=== PATIENT | male | born 1970 | race Caucasian/White ===

== ENCOUNTER 2023-04-12 13:49 | Outpatient (REF) | payer OTHER, SELFPAY ==
--- NOTE | 2023-04-12 | EMG_ITS ---
Chief complaint: Gradual onset and progression of numbness in both feet and weakness. Sudden exacerbation last February now involving both hands and feet. History of lumbar surgery 2020 and alcohol drinking. Reason for referral: Evaluate for neuropathy Referred by: Dr. Julito Ribeiro Procedure done: Bilateral lower extremity, right upper extremity, NCS/EMG Precautions and/or limitations: Patient on Lovenox. The limb temperature was monitored continuously and remained between 32-36 degrees C during the performance of the NCS. Nerve Conduction Studies Anti Sensory Summary Table ?Stim Site NR Onset (ms) Norm Onset (ms) Peak (ms) Norm Peak (ms) O-P Amp (?V) Norm O-P Amp Site1 Site2 Delta-0 (ms) Dist (cm) Kris (m/s) Norm Kris (m/s) Right Median Anti Sensory (2nd Digit) Wrist ? 3.2 4.3 <3.6 3.7 >10 Wrist 2nd Digit 3.2 14.0 44 Right Radial Anti Sensory (Thumb) Forearm ? 2.7 3.2 <3.1 3.3 Forearm Thumb 2.7 0.0 Left Sural Anti Sensory (Lat Mall) Calf ? 2.2 2.7 <4.0 3.0 >5.0 Calf Lat Mall 2.2 14.0 64 Right Sural Anti Sensory (Lat Mall) Calf ? 2.6 3.1 <4.0 2.4 >5.0 Calf Lat Mall 2.6 14.0 54 Right Ulnar Anti Sensory (5th Digit) Wrist ? 2.6 2.9 <3.7 3.7 >15.0 Wrist 5th Digit 2.6 14.0 54 Motor Summary Table ?Stim Site NR Onset (ms) Norm Onset (ms) O-P Amp (mV) Norm O-P Amp iAmp (mV) Amp (1st) (%) Site1 Site2 Delta-0 (ms) Dist (cm) Kris (m/s) Norm Kris (m/s) Right Median Motor (Abd Poll Brev) Wrist ? 3.7 <3.9 9.2 >4.5 11.5 100.0 Elbow Wrist 4.6 22.5 49 >45 Elbow ? 8.3 7.3 9.2 79.3 Left Peroneal Motor (Ext Dig Brev) Ankle ? 4.8 <4.0 4.4 >2.5 5.3 100.0 Ankle Ext Dig Brev 4.8 0.0 B Fib ? 12.5 3.0 3.6 68.2 B Fib Ankle 7.7 32.0 42 >40 Poplt ? 13.6 2.7 3.2 61.4 Poplt B Fib 1.1 5.5 50 >40 Right Peroneal Motor (Ext Dig Brev) Ankle ? 4.5 <4.0 4.4 >2.5 5.4 100.0 Ankle Ext Dig Brev 4.5 0.0 B Fib ? 12.0 3.6 4.4 81.8 B Fib Ankle 7.5 34.0 45 >40 Poplt ? 13.1 3.4 4.2 77.3 Poplt B Fib 1.1 6.0 55 >40 Left Tibial Motor (Abd Newman Brev) Ankle ? 4.1 <5 9.4 >2.5 12.4 100.0 Ankle Abd Newman Brev 4.1 0.0 Knee ? 13.0 6.4 9.5 68.1 Knee Ankle 8.9 40.0 45 >40 Right Tibial Motor (Abd Newman Brev) Ankle ? 3.9 <5 5.1 >2.5 7.4 100.0 Ankle Abd Newman Brev 3.9 0.0 Knee ? 15.2 1.2 1.8 23.5 Knee Ankle 11.3 39.5 35 >40 Right Ulnar Motor (Abd Dig Minimi) Wrist ? 2.8 <3.0 2.4 >5 3.0 100.0 B Elbow Wrist 4.2 21.0 50 >45 B Elbow ? 7.0 1.7 2.0 70.8 A Elbow B Elbow 2.2 10.0 45 >45 A Elbow ? 9.2 1.6 1.9 66.7 EMG ?Side Muscle Nerve Root Ins Act Fibs Psw Amp Dur Poly Recrt Int Pat Comment Right AbdHallucis MedPlantar S1-2 Incr 1+ 1+ Incr Incr 0 Nml Complete Right AntTibialis Dp Br Peron L4-5 Nml Nml Nml Nml Nml 0 Nml Complete Right PostTibialis Tibial L5, S1 Nml Nml Nml Nml Nml 0 Nml Complete Right MedGastroc Tibial S1-2 Nml Nml Nml Nml Nml 0 Nml Complete Right VastusMed Femoral L2-4 Nml Nml Nml Nml Nml 0 Nml Complete Left AbdHallucis MedPlantar S1-2 Nml Nml Nml Nml Nml 0 Nml Complete Left AntTibialis Dp Br Peron L4-5 Nml Nml Nml Nml Nml 0 Nml Complete Left PostTibialis Tibial L5, S1 Nml Nml Nml Nml Nml 0 Nml Complete Left MedGastroc Tibial S1-2 Nml Nml Nml Nml Nml 0 Nml Complete Left VastusMed Femoral L2-4 Nml Nml Nml Nml Nml 0 Nml Complete Right 1stDorInt Ulnar C8-T1 Nml Nml Nml Nml Nml 0 Nml Complete Right FlexCarRad Median C6-7 Nml Nml Nml Nml Nml 0 Nml Complete Right Biceps Musculocut C5-6 Nml Nml Nml Nml Nml 0 Nml Complete Right Triceps Radial C6-7-8 Nml Nml Nml Nml Nml 0 Nml Complete Right Deltoid Axillary C5-6 Nml Nml Nml Nml Nml 0 Nml Complete FINDINGS: Right peroneal nerve showed prolonged distal latency, normal amplitude and normal conduction velocity. Right tibial nerve showed normal distal latency, normal amplitude and slow conduction velocity. Left peroneal nerve showed prolonged distal latency, normal amplitude and normal conduction velocity. Right ulnar motor nerve showed normal distal latency, small amplitude and normal conduction velocity. Bilateral sural nerves showed small amplitudes. Right median sensory and right radial sensory nerves showed prolonged peak latency and small amplitude.. Right ulnar sensory nerve showed small amplitude.. Concentric needle EMG was performed in selected muscles of the right upper extremity and bilateral lower extremity. Study revealed Signs of electric abnormalities as shown in the table below. Right AH showed increased insertional activity, PSWs and fibrillations, and increased amplitude and duration. IMPRESSION: 1. This is an abnormal study. 2. 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 3. Cannot completely rule out chronic right L5-S1 radiculopathy. CLINICAL COMMENT: Further clinical correlation recommended. Thank you for your kind referral. Linda Bennett MD, YVROSE Board Certified, [place] [employer] (ABPMR) Board Certified, [place] [employer] (ABEM) CODIN [id number] x 3 MTDD
== END 2023-04-12 13:50 | disposition home or self-care (01) ==
LOC: HO.NEURO 13:49
PROVIDERS: PCP Internal Medicine; Visit Provider Hospitalist
DX: M51.26 Other intervertebral disc displacement, lumbar region (principal)
CPT/HCPCS: 95886; 95912

== ENCOUNTER → 2023-04-12 14:00 | Outpatient (BNV) | payer MEDICARE, MEDICAID, SELFPAY | PROVIDERS: PCP Internal Medicine; Visit Provider Physical Medicine & Rehabilitation | DX: G62.89 Other specified polyneuropathies (principal) | CPT/HCPCS: 95886; 95912 ==